=== PATIENT | male | born 1930 | race Caucasian/White ===

== ENCOUNTER 2016-07-23 10:47 | Emergency (ER) | payer MEDICARE, OTHER ==
[2016-07-23 11:38] LABS: BASOPHIL 0.3 % (0-2); EOSINOPHIL 1.6 % (0-7); HCT 41.6 % (42.0-52.0); HGB 13.7 g/dl (13.2-18.0); LYMPHOCYTE 17.5 % (15-48); MCH 31.4 pg (25.0-31.0); MCHC 32.9 g/dL (32.0-36.0); MCV 95.2 fL (78.0-100.0); MONOCYTE 13.4 % (0-12); MPV 9.8 fL (6.0-9.5); NEUTROPHIL 67.2 % (41-80); PLT 175 K/uL (150-400); RBC 4.37 M/uL (4.70-6.00); WBC 6.4 K/uL (4.0-10.5)
[2016-07-23 11:52] LABS: BILIRUBIN NEGATIVE (NEGATIVE); BLOOD 3+ Ery/uL (NEGATIVE); CLARITY CLEAR (CLEAR); COLOR AMBER (YELLOW); GLUCOSE (U) NORMAL (NORMAL); KETONE (U) TRACE mg/dL (NEGATIVE); LEUKOCYTES NEGATIVE Leu/uL (NEGATIVE); NITRITE NEGATIVE (NEGATIVE); PROTEIN TRACE (LOW) mg/dL (NEGATIVE); SPECIFIC GRAVITY 1.025 (1.001-1.030)
[2016-07-23 11:58] LABS: SQUAMOUS EPITHELIAL CELLS RARE; URINARY RBC 20-50; URINARY WBC RARE
[2016-07-23 12:09] LABS: CREATININE 0.7 mg/dL (0.7-1.2); POTASSIUM 4.1 mmol/L (3.5-5.1)
[2016-07-23 12:17] LABS: FT4 (FREE T4) 1.41 ng/dL (0.93-1.70); TSH (THYROID STIM HORMONE) 2.28 uIU/mL (0.270-4.200)
== END 2016-07-23 15:32 | disposition home or self-care (01) ==
LOC: FER 10:47
PROVIDERS: Emergency Medicine
DX: S09.90XA Unspecified injury of head, initial encounter (principal); M54.5 Low back pain; R07.81 Pleurodynia; I10 Essential (primary) hypertension; E03.9 Hypothyroidism, unspecified; Z79.82 Long term (current) use of aspirin; Z79.899 Other long term (current) drug therapy; Z95.5 Presence of coronary angioplasty implant and graft; Z92.3 Personal history of irradiation; Z87.891 Personal history of nicotine dependence; Z86.73 Personal history of transient ischemic attack (TIA), and cerebral infarction without residual deficits; Z85.118 Personal history of other malignant neoplasm of bronchus and lung; W06.XXXA Fall from bed, initial encounter
CPT/HCPCS: 36415; 70450; 71101; 72072; 72100; 72170; 80048; 81001; 84439; 84443; 85025